=== PATIENT | female | born 1985 | race Caucasian/White ===

== ENCOUNTER 2019-03-01 10:52 | Emergency (ER) | payer MEDICAID ==
[2019-03-01] MEDS ORDERED: PROCHLORPERAZINE 10 MG/2 ML VIAL IVP STA (11:25)
[2019-03-01] MEDS ORDERED: diphenhydrAMINE INJ 50 MG/ML VIAL IVP STA (11:25)
[2019-03-01] MEDS ORDERED: KETOROLAC 30 MG/ML VIAL IVP STA (11:25)
[2019-03-01] MEDS ORDERED: SODIUM CHLORIDE 0.9% 1,000 ML IV ONE (11:26)
--- NOTE | 2019-03-01 11:48 | ED Physician Documentation ---
PD HPI HEADACHE - Stated complaint Stated Complaint: SANTIAGO - Chief complaint Chief Complaint: General - History obtained from History obtained from: Patient - History of Present Illness Timing - onset: How many weeks ago (1-2) Timing - onset during: Rest Timing - duration: Weeks (1-2) Timing - details: Gradual onset, Waxing and waning Pain level max: 10 Pain level now: 7 Location: Global Quality: Throbbing, Aching. No: Thunderclap Associated symptoms: Stiff neck (occasional). No: Fever, Nausea Improved by: Rest, Dark room Worsened by: Light, Noise, Moving Contributing factors: No: Anticoagulated, Possible carbon monoxide, Hypertension, Recent illness, Trauma Similar symptoms before: Diagnosis (migraine) Recently seen: Clinic (starten on imitrex, not helping) - Additional information Additional information: has had increased stress recently Review of Systems Ten Systems: 10 systems reviewed and negative Constitutional: denies: Fever, Chills Ears: denies: Ear pain Nose: denies: Rhinorrhea / runny nose, Congestion Throat: denies: Sore throat Cardiac: denies: Chest pain / pressure Respiratory: denies: Dyspnea, Cough GI: reports: Nausea. denies: Vomiting, Diarrhea : reports: Vaginal bleeding (intermittent x 1 month), Irregular menses. denies: Now EGA Skin: denies: Rash Musculoskeletal: denies: Back pain Neurologic: denies: Focal weakness, Numbness, Confused, Altered mental status, LOC PD PAST MEDICAL HISTORY - Past Medical History Past Medical History: Yes Neuro: Migraines [employer]ELOPMENT: Other, Breast cancer Psych: Anxiety - Past Surgical History Past Surgical History: Yes /[employer]ELOPMENT: LEEP (Cervical surgery), Other - Present Medications Home Medications: Ambulatory Orders Medication Instructions Recorded Confirmed ALPRAZolam [Alprazolam] 1 mg 03/01/19 Afaxys 1 tab 03/01/19 Cetirizine HCl/Pseudoephedrine 1 each PO BID PRN #30 tab.er.12h 03/01/19 [Zyrtec-D Tablet] Cyclobenzaprine [Flexeril] 10 mg 03/01/19 Escitalopram [Lexapro] 20 mg 03/01/19 Nitrofurantoin Monohyd/M-Cryst 100 mg PO BID #10 capsule 03/01/19 [Macrobid 100 mg Capsule] Ondansetron HCl [Zofran] 4 mg 03/01/19 SUMAtriptan succinate [Sumatriptan 100 mg 03/01/19 Succinate] Zolpidem [Ambien] 5 mg 03/01/19 - Allergies Allergies/Adverse Reactions: Allergies Allergy/AdvReac Type Severity Reaction Status Date / Time Cephalosporins Allergy Anaphylaxis Verified 03/30/17 01:42 latex Allergy Unknown Verified 03/01/19 11:05 Penicillins Allergy Hives Verified 03/30/17 01:42 - Social History Does the pt smoke?: Yes Smoking Status: Current every day smoker Does the pt drink ETOH?: No Does the pt have substance abuse?: No - Immunizations Immunizations are current?: Yes - POLST Patient has POLST: No PD ED PE NORMAL - Vitals Vital signs reviewed: Yes - General General: Alert and oriented X 3, Well developed/nourished, Other (darkened room, covering her eyes) - HEENT HEENT: PERRL, Moist mucous membranes - Neck Neck: Supple, no meningeal sign - Cardiac Cardiac: RRR, No murmur, Strong equal pulses - Respiratory Respiratory: No respiratory distress, Clear bilaterally - Abdomen Abdomen: Normal bowel sounds, Soft, Non tender, Non distended - Derm Derm: Warm and dry - Extremities Extremities: No deformity - Neuro Neuro: Alert and oriented X 3 - Psych Psych: Normal mood, Normal affect Results - Vitals Vitals: Vital Signs - 24 hr 03/01/19 03/01/19 10:55 14:09 Temperature 36.1 C L Heart Rate 73 89 Respiratory 16 15 Rate Blood Pressure 113/71 96/59 L O2 Saturation 98 99 Oxygen O2 Source Room air - Labs Labs: Laboratory Tests 03/01/19 03/01/19 03/01/19 11:35 11:35 12:00 WBC 7.1 RBC 4.64 Hgb 13.9 Hct 41.7 MCV 89.8 MCH 30.0 MCHC 33.4 RDW 11.7 L Plt Count 258 MPV 9.4 Neut # (Auto) 5.5 Lymph # (Auto) 1.2 L Sutton # (Auto) 0.3 Eos # (Auto) 0.0 Baso # (Auto) 0.0 Absolute Nucleated RBC 0.00 Nucleated RBC % 0.0 Sodium 134 L Potassium 3.7 Chloride 99 L Carbon Dioxide 24 Anion Gap 11.0 BUN 17 Creatinine 0.6 Estimated GFR (MDRD) 117 Glucose 129 H Calcium 9.5 Urine Color YELLOW Urine Clarity HAZY Urine pH 6.5 Ur Specific Thebes <=1.005 Urine Protein NEGATIVE Urine Glucose (UA) NEGATIVE Urine Ketones NEGATIVE Urine Occult Blood NEGATIVE Urine Nitrite NEGATIVE Urine Bilirubin NEGATIVE Urine Urobilinogen 1 (NORMAL) Ur Leukocyte Esterase SMALL H Urine RBC 0-5 Urine WBC >25 H Urine WBC Clumps PRESENT Ur Squamous Epith Cells FEW Squamous Urine Bacteria Few Ur Microscopic Review INDICATED Urine Culture Comments INDICATED Urine HCG, Qual NEGATIVE - Rads (name of study) Head CT Radiology: Prelim report reviewed, EMP read contemporaneously, See rad report (Moderate left ethmoid and left maxillary mucosal thickening as described above. Otherwise negative examination. No acute intracranial abnormality. ) PD MEDICAL DECISION MAKING - ED course Complexity details: reviewed results, re-evaluated patient, considered differential, d/w patient ED course: No acute findings on head CT other than moderate L ethmoid and maxillary mucosal thickening. She was given IV Toradol, Benadryl and Compazine. Headache improved slightly. Headache then resolved with dexamethasone, magnesium and a dose of Dilaudid IV. Also given IV fluids. Also given pseudoephedrine for the swelling in her sinuses. She has had a lot of stress in her life recently and was 3 days ago. Likely that this represents a combination of her usual migraine along tension headache as well as a sinus headache. We will have her follow-up with her doctor for further care. No evidence of subarachnoid hemorrhage. Patient counseled regarding signs and symptoms for which I believe and urgent re-evaluation would be necessary. Patient with good understanding of and agreement to plan and is comfortable going home at this time This document was made in part using voice recognition software. While efforts are made to proofread this document, sound alike and grammatical errors may occur. Also found to have a UTI, will treat with Macrobid. Departure - Departure Disposition: 01 Home, Self Care Clinical Impression: Headache Qualifiers: Headache type: unspecified Headache chronicity pattern: acute headache Intractability: not intractable Qualified Code(s): R51 - Headache Sinusitis Qualifiers: Sinusitis location: unspecified location Chronicity: acute Recurrence: non- recurrent Qualified Code(s): J01.90 - Acute sinusitis, unspecified UTI (urinary tract infection) Qualifiers: Urinary tract infection type: acute cystitis Hematuria presence: without hematuria Qualified Code(s): N30.00 - Acute cystitis without hematuria Condition: Good Instructions: ED Headache Migraine, ED Headache Sinus Follow-Up: Andrew Coy [Primary Care Provider] - Within 1 week Prescriptions: Cetirizine HCl/Pseudoephedrine [Zyrtec-D Tablet] 1 each PO BID PRN #30 tab.er.12h PRN Reason: nasal congestion Nitrofurantoin Monohyd/M-Cryst [Macrobid 100 mg Capsule] 100 mg PO BID #10 capsule Comments: Follow-up with your doctor for further care. Return if you worsen. You may benefit from a referral to a headache specialist, this can be done by your primary doctor. Discharge Date/Time: 03/01/19 14:17
[2019-03-01 11:52] LABS: BASOPHILS % (AUTO) 0.6 %; EOSINOPHILS % (AUTO) 0.6 %; HGB - HEMOGLOBIN 13.9 g/dL (12.0-16.0); LYMPHOCYTES # (AUTO) 1.2 10^3/uL (1.5-3.5); LYMPHOCYTES % (AUTO) 17.2 %; MEAN CORPUSCULAR HGB CONC 33.4 g/dL (32.0-36.0); MEAN CORPUSCULAR VOLUME 89.8 fL (81.0-99.0); MEAN PLATELET VOLUME 9.4 fL (7.9-10.8); MONOCYTES # (AUTO) 0.3 10^3/uL (0.0-1.0); MONOCYTES % (AUTO) 3.7 %; NEUTROPHILS # (AUTO) 5.5 10^3/uL (1.5-6.6); NEUTROPHILS % (AUTO) 77.9 %; PLT - PLATELET COUNT 258 10^3/uL (130-450); RED BLOOD COUNT 4.64 10^6/uL (4.20-5.40); RED CELL DISTRIBUTION WIDTH 11.7 % (12.0-15.0); WHITE BLOOD COUNT 7.1 x10^3/uL (4.8-10.8)
[2019-03-01 11:54] LABS: CALCIUM 9.5 mg/dL (8.5-10.3); CREATININE 0.6 mg/dL (0.4-1.0)
--- NOTE | 2019-03-01 12:33 | CT Report ---
Reason: SANTIAGO x 2 weeks Procedure Date: 03/01/2019 Accession Number: [id number] / [id number] Procedure: CT - HEAD WO CPT Code: FULL RESULT: EXAM: CT HEAD EXAM DATE: 03/01/2019 12:20 PM. CLINICAL HISTORY: SANTIAGO x 2 weeks. COMPARISON: None. TECHNIQUE: Multiaxial CT images were obtained from the foramen magnum to the vertex. Reformats: Sagittal and coronal. IV contrast: None. In accordance with CT protocol optimization, one or more of the following dose reduction techniques were utilized for this exam: automated exposure control, adjustment of mA and/or KV based on patient size, or use of iterative reconstructive technique. FINDINGS: Parenchyma: No intraparenchymal hemorrhage. No evidence of mass, midline shift, or CT findings of infarction. Lawson-white differentiation is distinct. Extraaxial Spaces: Normal for age. No subdural or epidural collections identified. Ventricles: Normal in size and position. Sinuses and Orbits: Moderate left ethmoid mucosal thickening. Left maxillary mucus retention cyst. No other significant sinus abnormality on limited evaluation. Bones: No evidence of fracture or calvarial defect. Other: None. IMPRESSION: 1. Moderate left ethmoid and left maxillary mucosal thickening as described above. 2. Otherwise negative examination. No acute intracranial abnormality. RADIA
[2019-03-01] MEDS ORDERED: DEXAMETHASONE 10 MG/ML VIAL IVP STA (12:54)
[2019-03-01] MEDS ORDERED: HYDROmorphone 1 MG/ML CARPUJECT IVP STA (12:55)
[2019-03-01] MEDS ORDERED: MAGNESIUM SULFATE 2 GRAM 2 GM/50 ML BAG IV ONE (12:55)
[2019-03-01 12:58] LABS: BILIRUBIN,URINE NEGATIVE (NEGATIVE); GLUCOSE, URINE (UA) NEGATIVE (NEGATIVE); KETONES,URINE (UA) NEGATIVE (NEGATIVE); LEUKOCYTE ESTERASE, URINE SMALL (NEGATIVE); NITRITE,URINE NEGATIVE (NEGATIVE); OCCULT BLOOD,URINE NEGATIVE (NEGATIVE); PH,URINE 6.5 PH (5.0-7.5); PROTEIN,URINE NEGATIVE (NEGATIVE); UROBILINOGEN,URINE 1 (NORMAL) E.U./dL (NORMAL)
[2019-03-01 13:00] LABS: CLARITY,URINE HAZY (CLEAR); HCG UR QUAL NEGATIVE
[2019-03-01] MEDS ORDERED: PSEUDOEPHEDRINE 30 MG TABLET PO STA (13:01)
[2019-03-01 13:09] LABS: WBC CLUMPS,URINE PRESENT
[2019-03-01 13:10] LABS: BACTERIA,URINE Few /HPF (None Seen); RBC,URINE 0-5 /HPF (0-5); SQUAMOUS EPITHELIAL CELL,UR FEW Squamous (<= Few)
[2019-03-01] MEDS ORDERED: NITROFURANTOIN MACRO 100 MG CAPSULE PO STA (13:40)
[2019-03-01 14:10] VITALS: BP 96/59
== END 2019-03-01 14:17 | disposition home or self-care (01) ==
LOC: ED 10:52
DX: R51 Headache (principal); J01.20 Acute ethmoidal sinusitis, unspecified; J01.00 Acute maxillary sinusitis, unspecified; N30.00 Acute cystitis without hematuria; F43.9 Reaction to severe stress, unspecified; F17.200 Nicotine dependence, unspecified, uncomplicated
CPT/HCPCS: 36415; 70450; 80048; 81001; 81025; 85025; 87077; 87086; 87181; 96361; 96365; 96375; 99283; 99284; A9270; J1170; J1200; 81003

== ENCOUNTER 2019-03-12 12:12 | Outpatient (CLI) | payer MEDICAID ==
[2019-03-12 13:03] LABS: BASOPHILS # (AUTO) 0.1 10^3/uL (0.0-0.1); BASOPHILS % (AUTO) 0.7 %; EOSINOPHILS # (AUTO) 0.3 10^3/uL (0.0-0.7); EOSINOPHILS % (AUTO) 2.9 %; HGB - HEMOGLOBIN 12.9 g/dL (12.0-16.0); LYMPHOCYTES # (AUTO) 1.9 10^3/uL (1.5-3.5); LYMPHOCYTES % (AUTO) 18.9 %; MEAN CORPUSCULAR HGB CONC 32.8 g/dL (32.0-36.0); MEAN CORPUSCULAR VOLUME 91.5 fL (81.0-99.0); MONOCYTES # (AUTO) 0.6 10^3/uL (0.0-1.0); MONOCYTES % (AUTO) 5.6 %; NEUTROPHILS # (AUTO) 7.4 10^3/uL (1.5-6.6); NEUTROPHILS % (AUTO) 71.9 %; PLT - PLATELET COUNT 220 10^3/uL (130-450); RED CELL DISTRIBUTION WIDTH 12.3 % (12.0-15.0); WHITE BLOOD COUNT 10.3 x10^3/uL (4.8-10.8)
[2019-03-12 13:13] LABS: CALCIUM 9.3 mg/dL (8.5-10.3)
[2019-03-12 13:40] LABS: THYROID STIMULATING HORMONE 2.12 uIU/mL (0.34-5.60)
[2019-03-12 13:42] LABS: FREE T4 (FREE THYROXINE) 0.74 ng/dL (0.58-1.64)
[2019-03-12 14:19] LABS: ALBUMIN 3.6 g/dL (3.2-5.5); ALBUMIN/GLOBULIN RATIO 1.2 (1.0-2.2); BILIRUBIN,TOTAL 0.3 mg/dL (0.2-1.0); CREATININE 0.6 mg/dL (0.4-1.0); TOTAL PROTEIN 6.5 g/dL (6.7-8.2)
== END 2019-03-12 12:13 | disposition home or self-care (01) ==
LOC: LAB 12:12
PROVIDERS: ATTEND Obstetrics & Gynecology
DX: R53.83 Other fatigue (principal); Z11.51 Encounter for screening for human papillomavirus (HPV); Z12.4 Encounter for screening for malignant neoplasm of cervix
CPT/HCPCS: 36415; 80053; 82306; 84439; 84443; 85025

== ENCOUNTER 2019-03-13 00:15 | Outpatient (CLI) | payer BC ==
--- NOTE | 2019-03-13 02:36 | Ultrasound Report ---
Reason: ABNORMAL UTERINE BLEEDING Procedure Date: 03/13/2019 Accession Number: [id number] / [id number] Procedure: US - Pelvic w/Transvaginal CPT Code: FULL RESULT: EXAM: PELVIC ULTRASOUND EXAM DATE: 03/13/2019 02:00 AM. CLINICAL HISTORY: Abnormal uterine bleeding. COMPARISON: None. TECHNIQUE: Real-time transabdominal pelvic scan performed to identify the uterus and adnexa and as an overview of other pelvic structures, followed by transvaginal scan to provide greater detail of the uterus and adnexa, with static image documentation. FINDINGS: Uterus: 8.8 x 5.9 x 4.8 cm, volume 130.3 cc. Anteverted position. Heterogeneous echotexture without discrete mass seen. Masses: None. Endometrium: 9.9 mm. Normal. Cervix: Unremarkable. Right Ovary: 4.0 x 2.4 x 1.8 cm, volume 9.0 cc. Normal echotexture and blood flow. Left Ovary: 2.8 x 3.2 x 2.0 cm, volume 9.3 cc. Normal echotexture and blood flow. Free Fluid: Trace. Other: None. IMPRESSION: Heterogeneous uterus without discrete mass seen. There could be underlying adenomyosis. If clinically indicated, MRI could be considered. RADIA
== END 2019-03-13 00:16 | disposition home or self-care (01) ==
LOC: MERGE 00:15 → DI 00:15
PROVIDERS: ATTEND Obstetrics & Gynecology
DX: N93.9 Abnormal uterine and vaginal bleeding, unspecified (principal)
CPT/HCPCS: 76830; 76856

== ENCOUNTER 2019-04-01 10:36 | Outpatient (CLI) | payer BC ==
--- NOTE | 2019-04-01 16:21 | Mammography Report ---
Reason: BILAT MASTODYNIA, HX LT BREAST CA Procedure Date: 04/01/2019 Accession Number: [id number] / [id number] Procedure: ANDRES - Diagnostic Dig Bilat CPT Code: FULL RESULT: EXAM: Diagnostic Dig Bilat DATE: 04/01/2019 11:34 AM CLINICAL HISTORY: Personal history of left breast cancer status post lumpectomy in 2012. History of early menses. The patient is back up positive and scheduled to undergo protective bilateral mastectomy. The examination is in anticipation of this. Strong family history of breast cancer, mother at the age of 25, sister at the age of 26, aunt at the age of 32, grandmother at the age of 31 and a cousin at the age of 36. TECHNIQUE: (B) - Bilateral CC, laterally exaggerated CC, MLO views were obtained. COMPARISON: None PARENCHYMAL PATTERN: (VD) - The breast(s) demonstrate(s) extremely dense parenchyma, limiting the sensitivity of mammography. FINDINGS: Postsurgical changes are seen in the left breast. There are no suspicious masses, calcifications, or areas of distortion. IMPRESSION: Benign findings. BI-RADS category 2. RECOMMENDATION: (ANNUAL) - Recommend routine annual screening mammography. Continue screening mammography augmented by high risk breast MRI until completion of planned protective mastectomy. BI-RADS CATEGORY: (2) - Benign Findings. STANDARD QUALIFYING STATEMENTS: 1. This examination was not reviewed with the aid of Computer-Aided Detection (CAD). 2. A negative or benign imaging report should not preclude biopsy if clinically suspicious findings are present. 3. Dense breasts may obscure an underlying neoplasm. 4. This examination was reviewed with the aid of 3D breast imaging (tomosynthesis).
== END 2019-04-01 10:37 | disposition home or self-care (01) ==
LOC: DI 10:36
PROVIDERS: ATTEND Obstetrics & Gynecology
DX: N64.4 Mastodynia (principal); Z85.3 Personal history of malignant neoplasm of breast; Z80.3 Family history of malignant neoplasm of breast
CPT/HCPCS: 77066

== ENCOUNTER 2019-04-05 16:50 | Outpatient (CLI) | payer BC | END 2019-04-05 16:51 | disposition home or self-care (01) | LOC: LAB.R 16:50 | PROVIDERS: ATTEND Obstetrics & Gynecology | DX: R30.0 Dysuria (principal) | CPT/HCPCS: 87086 ==

== ENCOUNTER 2019-04-19 08:00 | Outpatient (CLI) | payer MEDICAID, BC | END 2019-04-19 23:59 | disposition home or self-care (01) | LOC: LAB 08:00 | PROVIDERS: ATTEND Obstetrics & Gynecology | DX: Z32.01 Encounter for pregnancy test, result positive (principal) | CPT/HCPCS: 36415; 84702; 86900; 86901 ==

== ENCOUNTER 2019-04-26 12:19 | Outpatient (CLI) | payer BC, MEDICAID | END 2019-04-26 12:20 | disposition home or self-care (01) | LOC: LAB 12:19 | PROVIDERS: ATTEND Obstetrics & Gynecology | DX: Z32.01 Encounter for pregnancy test, result positive (principal) | CPT/HCPCS: 36415; 84702 ==

== ENCOUNTER 2019-05-04 14:19 | Outpatient (CLI) | payer BC | END 2019-05-04 14:20 | disposition home or self-care (01) | LOC: LAB 14:19 | PROVIDERS: ATTEND Obstetrics & Gynecology | DX: Z32.01 Encounter for pregnancy test, result positive (principal) | CPT/HCPCS: 36415; 84702 ==

== ENCOUNTER 2019-06-16 19:54 | Emergency (ER) | payer BC ==
[2019-06-16 20:02] VITALS: BP 104/76
--- NOTE | 2019-06-16 20:37 | ED Physician Documentation ---
History of Present Illness - Stated complaint Stated Complaint: POST OP PAIN - Chief complaint Chief Complaint: General - History obtained from History obtained from: Patient, Family (Spouse) - History of Present Illness Timing: How many days ago (Increasing the past two days.) - Additonal information Additional information: The patient is a 33-year-old female who presents with postoperative pain of her breasts, 3 weeks status post double mastectomy. She completed a 10-day course of clindamycin postoperatively. She has been using OxyContin and Ativan for p ain and spasms. She has run out of Ativan, and presents now with increased pain. She is concerned about the possibility of infection. The drains were removed 5 days ago. She denies any drainage from the wound sites. She denies fever, cough, or vomiting. Her past history significant for breast cancer that was diagnosed at age 26 and again age 28. Review of Systems Constitutional: denies: Fever Nose: denies: Congestion Throat: denies: Sore throat Cardiac: denies: Chest pain / pressure Respiratory: denies: Dyspnea, Cough GI: reports: Nausea. 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: LEEP (Cervical surgery), Other - Present Medications Home Medications: Ambulatory Orders Medication Instructions Recorded Confirmed ALPRAZolam [Alprazolam] 1 mg 03/01/19 Afaxys 1 tab 03/01/19 Cetirizine HCl/Pseudoephedrine 1 each PO BID PRN #30 tab.er.12h 03/01/19 [Zyrtec-D Tablet] Cyclobenzaprine [Flexeril] 10 mg 03/01/19 Escitalopram [Lexapro] 20 mg 03/01/19 Nitrofurantoin Monohyd/M-Cryst 100 mg PO BID #10 capsule 03/01/19 [Macrobid 100 mg Capsule] Ondansetron HCl [Zofran] 4 mg 03/01/19 SUMAtriptan succinate [Sumatriptan 100 mg 03/01/19 Succinate] Zolpidem [Ambien] 5 mg 03/01/19 LORazepam [Ativan] 1 - 2 mg PO Q6HR PRN #20 tablet 06/16/19 - Allergies Allergies/Adverse Reactions: Allergies Allergy/AdvReac Type Severity Reaction Status Date / Time Cephalosporins Allergy Anaphylaxis Verified 06/16/19 20:02 latex Allergy Unknown Verified 06/16/19 20:02 Penicillins Allergy Hives Verified 06/16/19 20:02 - Social History Does the pt smoke?: Yes Smoking Status: Current every day smoker Does the pt drink ETOH?: No Does the pt have substance abuse?: No - Immunizations Immunizations are current?: Yes - POLST Patient has POLST: No PD ED PE NORMAL - Vitals Vital signs reviewed: Yes (normal) - General General: Alert and oriented X 3, Well developed/nourished - HEENT HEENT: Atraumatic, Moist mucous membranes - Cardiac Cardiac: RRR - Respiratory Respiratory: No respiratory distress, Clear bilaterally - Abdomen Abdomen: Soft, Non tender - Back Back: No CVA TTP - Derm Derm: No rash - Extremities Extremities: No edema, No calf tenderness / cord - Neuro Neuro: Alert and oriented X 3, No motor deficit, Normal speech - Free text exam Free text exam: Examination of her breasts reveals intact surgical incision sites, without erythema or drainage. There is diffuse tenderness with palpation along the inferior aspects of the breasts bilaterally. There is no warmth to palpation. There is no axillary adenopathy. Results - Vitals Vitals: Vital Signs - 24 hr 06/16/19 19:57 Temperature 36.6 C Heart Rate 70 Respiratory 16 Rate Blood Pressure 104/76 O2 Saturation 100 Oxygen O2 Source Room air PD MEDICAL DECISION MAKING - ED course Complexity details: reviewed old records, re-evaluated patient, considered differential, d/w patient, d/w family, d/w document management consultant ED course: The patient's presentation is most consistent with postoperative pain, status post bilateral mastectomies. There is no evidence of wound infection. The patient requests refill for prescription of Ativan that she had been previously taking but has run out. Treatment in the emergency department included administration of Ativan 1 mg orally, and toradol 60 mg IM. I discussed her condition with Dr. Barksdale, her plastic surgeon, who agrees with symptomatic treatment. She is being discharged with prescription for Ativan. I discussed with her and her the importance of outpatient follow-up, as well as potentially worrisome signs or symptoms that should prompt reevaluation in the emergency department. Departure - Departure Disposition: 01 Home, Self Care Clinical Impression: Post-operative pain, S/P mastectomy, bilateral Condition: Stable Instructions: ED Post Op Pain Follow-Up: Wiliam Barksdale MD [Primary Care Provider] - Prescriptions: LORazepam [Ativan] 1 - 2 mg PO Q6HR PRN #20 tablet PRN Reason: Pain Comments: Continue OxyContin as previously prescribed if needed for pain. You can also use Ativan as prescribed if needed. Follow-up with your surgeon as planned. Return to the emergency department if you develop increasing pain, any sign of infection, or otherwise worsening symptoms.
[2019-06-16] MEDS ORDERED: LORazepam 1 MG TABLET PO STA ×2 (20:40→20:57)
[2019-06-16] MEDS ORDERED: KETOROLAC 60 MG/2 ML VIAL IM STA (20:59)
== END 2019-06-16 21:17 | disposition home or self-care (01) ==
LOC: ED 19:54
DX: G89.18 Other acute postprocedural pain (principal); F17.200 Nicotine dependence, unspecified, uncomplicated; Z90.13 Acquired absence of bilateral breasts and nipples
CPT/HCPCS: 96372; 99283; 99284; J8499

== ENCOUNTER 2022-07-19 08:00 | Outpatient (CLI) | payer BC, MEDICAID ==
[2022-07-19 20:55] LABS: BASOPHILS % (AUTO) 0.6 %; EOSINOPHILS % (AUTO) 0.3 %; HCT - HEMATOCRIT 32.8 % (37.0-47.0); HGB - HEMOGLOBIN 10.5 g/dL (12.0-16.0); LYMPHOCYTES % (AUTO) 27.8 %; MEAN CORPUSCULAR HEMOGLOBIN 27.7 pg (27.0-31.0); MEAN CORPUSCULAR VOLUME 86.5 fL (81.0-99.0); MEAN PLATELET VOLUME 11.3 fL (7.9-10.8); MONOCYTES # (AUTO) 0.5 10^3/uL (0.0-1.0); MONOCYTES % (AUTO) 6.5 %; NEUTROPHILS # (AUTO) 4.7 10^3/uL (1.5-6.6); NEUTROPHILS % (AUTO) 64.5 %; PLT - PLATELET COUNT 400 10^3/uL (130-450); RED BLOOD COUNT 3.79 10^6/uL (4.20-5.40); RED CELL DISTRIBUTION WIDTH 16.3 % (12.0-15.0); WHITE BLOOD COUNT 7.2 x10^3/uL (4.8-10.8)
[2022-07-19 21:11] LABS: ALBUMIN 4.3 g/dL (3.2-5.5); ALBUMIN/GLOBULIN RATIO 1.3 (1.0-2.2); ALKALINE PHOSPHATASE 40 IU/L (42-121); ALT ALANINE AMINOTRANSFERASE 12 IU/L (10-60); AST ASPARTATE AMINOTRANSFERASE 18 IU/L (10-42); BILIRUBIN,TOTAL 0.9 mg/dL (0.2-1.0); BUN - BLOOD UREA NITROGEN 14 mg/dL (6-20); CALCIUM 9.7 mg/dL (8.5-10.3); CARBON DIOXIDE - CO2 26 mmol/L (21-32); CHLORIDE 102 mmol/L (101-111); CREATININE 0.6 mg/dL (0.4-1.0); GFR - MDRD 114 (>89); GLUCOSE 80 mg/dL (70-100); POTASSIUM 3.3 mmol/L (3.5-5.0); SODIUM 138 mmol/L (135-145); TOTAL PROTEIN 7.7 g/dL (6.7-8.2)
[2022-07-19 21:15] LABS: CRP - C-REACTIVE PROTEIN < 1.0 mg/dL (0-1.0)
[2022-07-19 22:44] LABS: BACTERIAL VAGINOSIS DNA NEGATIVE (NEGATIVE); CANDIDA GLABRATA DNA NEGATIVE (NEGATIVE); CANDIDA GROUP DNA NEGATIVE (NEGATIVE); CANDIDA KRUSEI DNA NEGATIVE (NEGATIVE); TRICHOMONAS VAGINALIS DNA NEGATIVE (NEGATIVE)
== END 2022-07-19 23:59 | disposition home or self-care (01) ==
LOC: LAB.N 08:00
PROVIDERS: ATTEND Registered Nurse
DX: L29.8 Other pruritus (principal); R30.0 Dysuria; R10.9 Unspecified abdominal pain; Z87.448 Personal history of other diseases of urinary system
CPT/HCPCS: 36415; 80053; 81514; 85025; 86140; 87086